=== PATIENT | male | born 1960 | race Caucasian/White ===

== ENCOUNTER → 2025-03-02 14:05 | Outpatient (REF) | payer OTHER, SELFPAY | LOC: RAD 14:05 | PROVIDERS: ATTENDING PHYSICIAN Family Medicine | DX: D17.71 Benign lipomatous neoplasm of kidney (principal) | CPT/HCPCS: 76775 ==

== ENCOUNTER 2025-09-02 13:54 | Emergency (ER) | payer SELFPAY ==
[2025-09-02 14:03] VITALS: BP 155/96
--- NOTE | 2025-09-02 15:03 | ED.SKININJ ---
HPI-Injury
General
Chief Complaint: Skin Surface Trauma
Source: patient
Exam Limitations: none
Time Seen by Provider: 09/02/25 14:45
Nursing documentation reviewed up to this point in time: agreed with
History of Present Illness-Injury
Is this injury a work related problem?: Yes
Is pt an associate of [facility]/[place]?: No
Initial Injury comments:
Accidentally cut self with razor. Sustained laceration to left dorsal hand. Injury occurred just demi chef
Past History
Past History
ED Past Medical History: HTN
ED Past Surgical History: None
Social History
Tobacco: Non-smoker
Alcohol: None
Living: with family
Review of Systems
Review of Systems
Allergies reviewed?: Yes
All Other Systems: ROS reviewed and negative except as documented in HPI and ROS
Constitutional: Reports no symptoms
Musculoskeletal: Reports no symptoms
Skin: Reports other (laceration to left dorsal hand)
Neurological: Reports no symptoms
Psychiatric: Reports no symptoms
Skin Exam
Laceration
Left Dorsal Hand:
Length in cm: 2
Orientation: horizontal
Type of Laceration: simple
Any active bleeding?: no active bleeding
Distal skin color and temperature: normal-warm & good color
Normal distal neurovascular exam: Yes
Range of motion: full
Phy Exam
General Physical Exam
General Presentation: well appearing and no apparent distress
General age: appears stated age
General Skin: warm and dry
General Habitus: normal
General Mental: alert
Musculoskeletal Exam
Musculoskeletal Exam: full ROM and neuro vasc intact
Skin Exam
Skin Exam: normal color, warm/dry and no rash
Psychiatric Exam
Psychiatric Exam: normal mood/affect
Course
Orders/Labs/Results
Orders:
Orders
09/02/25 14:59
Cephalexin Monohydrate [Keflex] 500 mg PO NOW STA
Ibuprofen [Motrin] 600 mg PO NOW STA
Tetanus/Diphth/Acelpertussis [Adacel] 0.5 ml IM .ONCE ONE
Vital Signs
Initial and Last Documented VS:
Initial Vital Signs
Temp Pulse Resp BP Pulse Ox
98.0 F 88 16 155/96 98
09/02/25 14:03 09/02/25 14:03 09/02/25 14:03 09/02/25 14:03 09/02/25 14:03
Last Documented Vital Signs
Temp Pulse Resp BP Pulse Ox
98.0 F 88 16 155/96 98
09/02/25 14:03 09/02/25 14:03 09/02/25 14:03 09/02/25 14:03 09/02/25 14:03
Procedures
Laceration Closure
Left Dorsal Hand:
Status of Wound: clean
Description of Wound Edges: sharp
Preparation: cleaned with saline
Anesthesia: 1% Lidocaine with epi
Revision/Debridement: routine- no revision
Wound exploration: explored to base- no FB and no tendon involvement
Type of Closure: single layer closure
Skin Closure Material: 5-0 prolene
*Pulse Oximetry
SaO2: 98
Oxygen Mode of Delivery: Room air
Patient hypoxic: no
*Critical Care Note
Total Time (30-74mins, 75-104mins- exclusive of procedures): Not Applicable
Update Note
Update Note:
Patient to ED with complaint of laceration to left dorsal hand. CUt self with razor. No active bleeding on exam. Large hematoma at site. Closure completed bedside without incident. He is currently taking dupixent forhx of eczema. Hx of
raynauds. WIll place on short course of keflex proophylactically.
ED Attending Note
-
Portions of this chart may have been created with voice recognition software.� Occasional wrong word or��sound alike� substitutions may have occurred due to the inherent limitations of voice recognition software.
Discharge Plan
Departure
Patient Disposition: Home (Routine Discharge)
Date of Disposition: 09/02/25
Time of Disposition: 15:00
Patient with high blood pressure during this ER visit?: No
Condition: Good
Covid-19: Not Applicable
Discharge Problem:
Hand laceration
Instructions: Laceration Repair With Stitches (DC), Hematoma, RICE Therapy
Prescriptions:
New
cephalexin 500 mg capsule
500 mg PO BID 7 Days Qty: 14 0RF
No Action
hydrocodone-acetaminophen 1 TABLET tablet
1 tab PO Q4HPRN PRN (Reason: severe pain) Qty: 20 0RF
Referrals:
Vinny Atkins MD [Family Provider, Family Practice]
Referral Note: Sutures can be removed in 7-10 days
Interventions
Interventions:
*Risk Screen - Suicide Last Done: 09/02/25 14:03
*Neglect/Abuse Screening Last Done: 09/02/25 14:03
Discharge Date and Time
Print Language: TRINIDADIAN
[2025-09-02] MEDS: MOTRIN 600 MG PO (15:12)
[2025-09-02] MEDS: KEFLEX 500 MG PO (15:13)
[2025-09-02] MEDS: ADACEL 0.5 ML IM (15:13)
== END 2025-09-02 15:25 | disposition home or self-care (01) ==
LOC: EMR 13:54
PROVIDERS: EMERGENCY PHYSICIAN Emergency Medicine; FAMILY PHYSICIAN Family Medicine
DX: S61.412A Laceration without foreign body of left hand, initial encounter (principal); W26.8XXA Contact with other sharp object(s), not elsewhere classified, initial encounter; I10 Essential (primary) hypertension; Z23 Encounter for immunization
CPT/HCPCS: 90471; 12001; 99283; 90715